=== PATIENT | male | born 1970 ===

== ENCOUNTER 2022-09-27 23:01 | Emergency (ER) | payer SELFPAY ==
[~2022-09-27] VITALS: Ht 170.2 cm; Wt 77.1 kg
[~2022-09-27 23:01] MED LIST: HYDR-34 PO; NAPR-243 PO; TRM50T PO
[2022-09-27] MEDS ORDERED: TETANUS,DIPTH,PERTUSS P/F (BOOSTRIX) 0.5 ML VIAL IM ONE (23:30)
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
[2022-09-28] MEDS ORDERED: LIDOCAINE 1% INJ 20 ML VIAL INJ ONE
[2022-09-28] MEDS ORDERED: CEPHALEXIN 250 MG (KEFLEX) CAP PO ONE (01:15)
[2022-09-28] MEDS ORDERED: CEPH500T PO (01:21)
[2022-09-28 01:30] VITALS: BP 152/104
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
== END 2022-09-28 01:30 | disposition home or self-care (01) ==
LOC: EDUNIT# 23:01 → ER 23:05
DX: S01.01XA Laceration without foreign body of scalp, initial encounter (principal); S61.412A Laceration without foreign body of left hand, initial encounter; S51.812A Laceration without foreign body of left forearm, initial encounter; S41.012A Laceration without foreign body of left shoulder, initial encounter; Z28.310 Unvaccinated for COVID-19; Z23 Encounter for immunization; X99.9XXA Assault by unspecified sharp object, initial encounter; Y92.59 Other trade areas as the place of occurrence of the external cause
CPT/HCPCS: 12032; 70450; 71045; 73090; 90715

== ENCOUNTER 2022-10-06 15:45 | Emergency (ER) | payer SELFPAY ==
[~2022-10-06] VITALS: Ht 170 cm; Wt 77.0 kg
[~2022-10-06 15:45] MED LIST changes: +CEPH500T PO
== END 2022-10-06 15:50 | disposition home or self-care (01) ==
LOC: EDUNIT# 15:45 → ER 15:46
DX: S01.01XD Laceration without foreign body of scalp, subsequent encounter (principal); X58.XXXD Exposure to other specified factors, subsequent encounter

== ENCOUNTER 2022-10-15 14:12 | Emergency (ER) | payer SELFPAY ==
[~2022-10-15] VITALS: Ht 167 cm; Wt 77.0 kg
[2022-10-15 14:28] VITALS: BP 144/81
== END 2022-10-15 14:34 | disposition home or self-care (01) ==
LOC: EDUNIT# 14:12 → ER 14:16
DX: Z48.02 Encounter for removal of sutures (principal)